=== PATIENT | female | born 1990 | race Caucasian/White ===

== ENCOUNTER 2022-02-28 14:07 | Emergency (ER) | payer OTHER ==
[~2022-02-28] VITALS: Ht 160 cm; Wt 72.6 kg
[2022-02-28 14:12] VITALS: BP 113/62
[2022-02-28] MEDS ORDERED: FAMOTIDINE 20MG VIAL IV ONE ×2 (14:21→14:30)
[2022-02-28] MEDS ORDERED: SOLU-MEDROL 125MG VIAL ONE (14:21)
[2022-02-28] MEDS ORDERED: SOLU-MEDROL 125MG VIAL IVP ONE (14:30)
[2022-02-28] MEDS ORDERED: DiphenhydrAMINE HCL 50 MG/ML VIAL IV ONE (14:30)
[2022-02-28] MEDS ORDERED: EPIN0.3P2 IM (15:49)
[2022-02-28] MEDS ORDERED: PRED20TA3 PO (15:49)
== END 2022-02-28 15:55 | disposition home or self-care (01) ==
LOC: EDH 14:07
DX: L50.0 Allergic urticaria (principal); T63.481A Toxic effect of venom of other arthropod, accidental (unintentional), initial encounter; Z79.899 Other long term (current) drug therapy; Y92.89 Other specified places as the place of occurrence of the external cause
CPT/HCPCS: 96374; 96375; 99284; J2930; J3490